=== PATIENT | female | born 1990 | race Caucasian/White ===

== ENCOUNTER 2024-10-11 13:25 | Emergency (ER) | payer MEDICAID, OTHER ==
[~2024-10-11] VITALS: Ht 152.4 cm; Wt 52.2 kg
[2024-10-11 13:32] VITALS: BP 137/81; TEMP 98.3
[2024-10-11] MEDS ORDERED: KETOROLAC TROMETHAMINE 15 MG/ML VIAL ONE (14:08)
[2024-10-11] MEDS ORDERED: ONDANSETRON 4 MG TAB.RAPDIS ONE (14:08)
[2024-10-11] MEDS: ONDANSETRON HCL 4 MG/5 ML SOLUTION PO ONE (14:12)
[2024-10-11] MEDS: KETOROLAC TROMETHAMINE 15 MG/ML VIAL IM ONE (14:16)
[2024-10-11] MEDS ORDERED: IBUP-1955 PO (14:41)
[2024-10-11 14:45] VITALS: O2SAT 98
== END 2024-10-11 14:55 | disposition home or self-care (01) ==
LOC: ER 13:31
DX: S83.92XA Sprain of unspecified site of left knee, initial encounter (principal); R11.0 Nausea; G43.909 Migraine, unspecified, not intractable, without status migrainosus; Z60.2 Problems related to living alone; Z88.1 Allergy status to other antibiotic agents; W23.0XXA Caught, crushed, jammed, or pinched between moving objects, initial encounter; Y93.89 Activity, other specified; Y92.810 Car as the place of occurrence of the external cause; Y99.8 Other external cause status
CPT/HCPCS: 99283; 96372; 73564; J1885; Q0162